=== PATIENT | male | born 1980 | race Caucasian/White ===

== ENCOUNTER 2017-11-05 13:09 | Emergency (ER) | payer OTHER ==
[~2017-11-05] VITALS: Ht 198.1 cm; Wt 126.2 kg
[~2017-11-05 13:09] MED LIST: CLINDAMYCIN HC300 MG PO; INDOCIN50 MG PO; NOHOMEMEDS; PERCOCET 5/31 TABLET PO
[2017-11-05 14:11] LABS: HEMATOCRIT 46.2 % (38.0-50.0); HEMOGLOBIN 16.4 G/DL (12.5-16.6); MCH 29.5 PG (29.0-34.0); MCHC 35.5 G/DL (30.0-36.0); MCV 83.2 FL (86-99); PLATELET COUNT 257 K/uL (156-360); RBC DIS.WIDTH-CV 11.9 % (11.8-14.6); RBC DIS.WIDTH-SD 36.1 % (39-53); RED BLOOD COUNT 5.55 M/uL (4.00-5.50); WHITE BLOOD COUNT 14.8 K/uL (4.1-10.2)
[2017-11-05 14:19] LABS: ALBUMIN 4.3 g/dL (3.2-4.8); CHLORIDE 104 mEq/L (99-109); POTASSIUM 3.6 mEq/L (3.7-5.4)
[2017-11-05 14:20] LABS: SODIUM 137 mEq/L (136-147)
[2017-11-05 14:22] LABS: GLUCOSE 160 mg/dL (70-99); TOTAL PROTEIN 7.9 g/dL (6.4-8.3)
[2017-11-05 14:24] LABS: TOTAL BILIRUBIN 0.9 mg/dL (0.0-1.0)
[2017-11-05 14:25] LABS: ALKALINE PHOSPHATASE 76 IU/L (3-129); CREATININE 1.1 mg/dL (0.6-1.3); GFR ESTIMATE (CALCULATED) > 59 mL/min/ (58.99-99999)
[2017-11-05 14:27] LABS: AST (GOT) 21 IU/L (2-34); UREA NITROGEN (BUN) 19 mg/dL (9-23)
[2017-11-05 14:28] LABS: ALT (GPT) 30 IU/L (3-49)
[2017-11-05 14:29] LABS: LIPASE 68 U/L (1.0-51.0)
[2017-11-05] MEDS ORDERED: PEPCID20 MG PO (14:58)
[2017-11-05] MEDS ORDERED: CARAFATE1 GM PO (14:58)
[2017-11-05 15:09] VITALS: BP 115/93
== END 2017-11-05 15:10 | disposition home or self-care (01) ==
LOC: EME 13:09
PROVIDERS: Physician Assistant
DX: K21.9 Gastro-esophageal reflux disease without esophagitis (principal); Z87.19 Personal history of other diseases of the digestive system; Z87.891 Personal history of nicotine dependence
CPT/HCPCS: 80053; 83690; 85027; 99281; 99283